=== PATIENT | female | born 1980 | race Caucasian/White ===

== ENCOUNTER 2020-09-02 15:57 | Emergency (ER) | payer OTHER ==
[~2020-09-02] VITALS: Ht 170.2 cm; Wt 154.2 kg
[2020-09-02] MEDS ORDERED: KEFLEX500 M1 PO (16:51)
[2020-09-02] MEDS ORDERED: NORCO 5-325 TA1 EAC2 PO (16:51)
[2020-09-02] MEDS ORDERED: BACTRIM DS TAB1 EACH PO (16:51)
[2020-09-02 17:16] VITALS: BP 167/69
== END 2020-09-02 17:16 | disposition home or self-care (01) ==
LOC: M.ERS 15:57
DX: N61.0 Mastitis without abscess (principal); I10 Essential (primary) hypertension; Z98.890 Other specified postprocedural states; Z90.49 Acquired absence of other specified parts of digestive tract

== ENCOUNTER 2020-09-03 13:07 | Inpatient (IN) | payer OTHER ==
[~2020-09-03] VITALS: Ht 170.2 cm; Wt 154.2 kg
[~2020-09-03 13:07] MED LIST: BACTRIM DS TAB1 EACH PO; KEFLEX500 M1 PO; NORCO 5-325 TA1 EAC2 PO
[2020-09-03 13:12] VITALS: BP 148/100
[2020-09-03 13:42] LABS: ABSOLUTE BASOPHILS 0.1 thou/uL (0.0-0.2); ABSOLUTE EOSINOPHILS 0.1 thou/uL (0.0-0.7); ABSOLUTE LYMPHOCYTES 2.7 thou/uL (0.8-5.3); ABSOLUTE MONOCYTES 0.6 thou/uL (0.0-1.2); BASOPHILS 0.7 %; EOSINOPHILS 0.8 %; HEMATOCRIT 39.7 % (37.0-47.0); HEMOGLOBIN 13.3 gm/dL (12.0-15.0); LYMPHOCYTES 18.8 %; MCH 31.1 pg (26.0-34.0); MCHC 33.6 g/dL (28.0-37.0); MCV 92.8 fL (80.0-100.0); MONOCYTES 4.4 %; MPV 7.8 fl. (7.2-11.1); NUCLEATED RBCS 0 /100WBC; PLATELET COUNT* 378 thou/uL (150-400); POLYS 75.3 %; RBC 4.28 mil/uL (4.20-5.00); RDW-CV 13.1 % (10.5-14.5); WBC 14.6 thou/uL (4.0-11.0)
[2020-09-03 13:57] LABS: CALCIUM 8.3 mg/dL (8.5-10.1); CREATININE 1.2 mg/dL (0.6-1.3)
[2020-09-03 14:02] LABS: TOTAL BILIRUBIN 0.5 mg/dL (<0.1-1.0); TOTAL PROTEIN 7.4 g/dL (6.4-8.2)
--- NOTE | 2020-09-03 16:37 | EKG ---
[place] [address] ELECTROCARDIOGRAM REPORT Name: CINTHYA CUNNINGHAM Room: [place] [address] ADM IN [facility].#: [id number] Admission: 09/03/20 Attend Phys: Reta Guidry, Discharge: Date of : 80 Date of Service: 09/03/20 1326 Report #: [id number] THIS REPORT FOR: //name// [facility] ED Test Date: 2020-09-03 Test Time: 13:26:09 Pat Name: CINTHYA CUNNINGHAM Department: Room: [facility] Gender: F Cash Reconciliation Specialist: : 1980 Requested By: Viv Jolly Order Number: [id number] MD: Quique Lopez Measurements Intervals [place] Rate: 99 P: 41 OK: 152 QRS: 27 QRSD: 69 T: -30 QT: 426 QTc: 547 Interpretive Statements Sinus rhythm Borderline T abnormalities, diffuse leads Prolonged QT interval Baseline wander in lead(s) II,III,aVF No previous ECG available for comparison Electronically Signed On 09-03-2020 16:37:38 HYDRA[employer]IC [employer] by Quique Lopez [email or web address] <ELECTRONICALLY SIGNED> By: Quique Lopez MD, FAC 09/03/20 1637 1326 1326 Quique Lopez MD, MERGED WITH [facility] /EPI
[2020-09-03 19:54] VITALS: BP 162/64
[2020-09-03 20:30] VITALS: BP 151/97
[2020-09-03 23:06] LABS: GLYCOHEMOGLOBIN (HGB A1C) 5.7 % (4.8-5.6)
[2020-09-04 04:48] LABS: HEMATOCRIT 35.2 % (37.0-47.0); HEMOGLOBIN 11.9 gm/dL (12.0-15.0); MCH 31.2 pg (26.0-34.0); MCHC 33.7 g/dL (28.0-37.0); MCV 92.7 fL (80.0-100.0); MPV 8.1 fl. (7.2-11.1); RBC 3.8 mil/uL (4.20-5.00); RDW-CV 13.2 % (10.5-14.5); WBC 13.1 thou/uL (4.0-11.0)
[2020-09-04 05:20] LABS: ALBUMIN 2.6 g/dL (3.4-5.0); CALCIUM 8.2 mg/dL (8.5-10.1); MAGNESIUM 1.8 mg/dL (1.8-2.4); POTASSIUM 3.4 mmol/L (3.5-5.1); TOTAL BILIRUBIN 0.6 mg/dL (<0.1-1.0); TOTAL PROTEIN 6.7 g/dL (6.4-8.2)
[2020-09-04 07:55] VITALS: BP 143/96
[2020-09-04 20:22] VITALS: BP 138/88
[2020-09-05 04:15] LABS: HEMATOCRIT 36.3 % (37.0-47.0); HEMOGLOBIN 12.3 gm/dL (12.0-15.0); MCH 31.5 pg (26.0-34.0); MCHC 33.9 g/dL (28.0-37.0); MPV 8.5 fl. (7.2-11.1); RBC 3.9 mil/uL (4.20-5.00); RDW-CV 13.1 % (10.5-14.5); WBC 14.8 thou/uL (4.0-11.0)
[2020-09-05 06:36] LABS: CALCIUM 8.7 mg/dL (8.5-10.1); CREATININE 0.9 mg/dL (0.6-1.3); MAGNESIUM 1.9 mg/dL (1.8-2.4); POTASSIUM 3.9 mmol/L (3.5-5.1)
[2020-09-05 08:27] VITALS: BP 160/97
[2020-09-05 16:28] VITALS: BP 129/90
[2020-09-05 19:38] VITALS: BP 119/71
[2020-09-06 07:48] VITALS: BP 136/88
[2020-09-06 16:37] VITALS: BP 140/83
[2020-09-06 20:00] VITALS: BP 152/99
[2020-09-07 03:54] LABS: ALBUMIN 2.7 g/dL (3.4-5.0); CALCIUM 8.6 mg/dL (8.5-10.1); CREATININE 0.9 mg/dL (0.6-1.3); MAGNESIUM 1.9 mg/dL (1.8-2.4); POTASSIUM 3.8 mmol/L (3.5-5.1); TOTAL BILIRUBIN 0.4 mg/dL (<0.1-1.0); TOTAL PROTEIN 7.1 g/dL (6.4-8.2)
[2020-09-07 04:05] LABS: HEMATOCRIT 36.5 % (37.0-47.0); HEMOGLOBIN 12.5 gm/dL (12.0-15.0); MCH 31.3 pg (26.0-34.0); MCHC 34.3 g/dL (28.0-37.0); MCV 91.2 fL (80.0-100.0); MPV 7.8 fl. (7.2-11.1); RDW-CV 12.7 % (10.5-14.5); WBC 10.6 thou/uL (4.0-11.0)
[2020-09-07 07:38] VITALS: BP 130/80
[2020-09-07 09:33] VITALS: BP 130/80
[2020-09-07 13:35] VITALS: BP 143/95
[2020-09-07 16:17] VITALS: BP 162/92
[2020-09-07 20:18] VITALS: BP 134/87
[2020-09-08 05:10] LABS: HEMATOCRIT 35.6 % (37.0-47.0); HEMOGLOBIN 12.3 gm/dL (12.0-15.0); MCH 31.3 pg (26.0-34.0); MCHC 34.4 g/dL (28.0-37.0); MCV 90.9 fL (80.0-100.0); MPV 7.9 fl. (7.2-11.1); RBC 3.92 mil/uL (4.20-5.00); RDW-CV 12.9 % (10.5-14.5); WBC 10.4 thou/uL (4.0-11.0)
[2020-09-08 05:37] LABS: ALBUMIN 2.7 g/dL (3.4-5.0); CALCIUM 8.7 mg/dL (8.5-10.1); CREATININE 0.8 mg/dL (0.6-1.3); MAGNESIUM 2.1 mg/dL (1.8-2.4); POTASSIUM 3.6 mmol/L (3.5-5.1); TOTAL BILIRUBIN 0.4 mg/dL (<0.1-1.0); TOTAL PROTEIN 7.1 g/dL (6.4-8.2)
[2020-09-08] MEDS ORDERED: DOXYCYCLINE 10100 MG PO (07:20)
[2020-09-08] MEDS ORDERED: NORVASC10 MG PO (07:20)
[2020-09-08] MEDS ORDERED: OXYCODONE HCL 55 MG PO (07:20)
[2020-09-08 07:30] VITALS: BP 129/84
[2020-09-08 13:40] VITALS: BP 129/84
[2020-09-08 14:14] VITALS: BP 129/84
[2020-09-08 16:17] VITALS: BP 148/78
[2020-09-08 16:20] VITALS: BP 148/78
== END 2020-09-08 16:15 | disposition home or self-care (01) | DRG 584 ==
LOC: M.ERS 13:07 → M.TBA-ER 15:44 → M.3W 20:15
PROVIDERS: Nurse Practitioner Family; ADMIT Internal Medicine; ATTEND Internal Medicine
PROC: 0H9U0ZZ Drainage of Left Breast, Open Approach (ICD-10-PCS; principal; 2020-09-07)
DX: N61.0 Mastitis without abscess (principal); Z68.43 Body mass index [BMI] 50.0-59.9, adult; E89.0 Postprocedural hypothyroidism; I10 Essential (primary) hypertension; F31.9 Bipolar disorder, unspecified; F43.10 Post-traumatic stress disorder, unspecified; F41.9 Anxiety disorder, unspecified; F17.210 Nicotine dependence, cigarettes, uncomplicated; R73.9 Hyperglycemia, unspecified; E78.5 Hyperlipidemia, unspecified; K21.9 Gastro-esophageal reflux disease without esophagitis; E66.01 Morbid (severe) obesity due to excess calories; Z20.822 Contact with and (suspected) exposure to COVID-19; E87.6 Hypokalemia; Z59.0 Homelessness; Z90.49 Acquired absence of other specified parts of digestive tract; Z79.899 Other long term (current) drug therapy; Z88.8 Allergy status to other drugs, medicaments and biological substances

== ENCOUNTER 2021-01-30 08:29 | Emergency (ER) | payer OTHER ==
[~2021-01-30] VITALS: Ht 170.2 cm; Wt 149.7 kg
[~2021-01-30 08:29] MED LIST changes: +DOXYCYCLINE 10100 MG PO; +NORVASC10 MG PO; +OXYCODONE HCL 55 MG PO
[2021-01-30] MEDS ORDERED: CEPHALEXIN500 MG PO (08:55)
[2021-01-30] MEDS ORDERED: BACTRIM DS TAB1 EACH PO (08:55)
[2021-01-30] MEDS ORDERED: HYDROCODON-ACE1 EAC7 PO (08:55)
[2021-01-30 09:24] VITALS: BP 137/83
== END 2021-01-30 09:26 | disposition home or self-care (01) ==
LOC: M.ERS 08:29
DX: L03.317 Cellulitis of buttock (principal); F17.210 Nicotine dependence, cigarettes, uncomplicated; I10 Essential (primary) hypertension; E03.9 Hypothyroidism, unspecified; Z88.8 Allergy status to other drugs, medicaments and biological substances; Z98.890 Other specified postprocedural states; Z90.49 Acquired absence of other specified parts of digestive tract